=== PATIENT | male | born 2000 | race Hispanic/Latino ===

== ENCOUNTER 2022-03-10 08:22 | Observation (INO) | payer BC ==
[2022-03-09 09:33] LABS: BASOPHILS % 0.3 % (0.0-1.0); EOSINOPHILS # (AUTO) 0.1 (0.0-0.4); EOSINOPHILS % 1.7 % (0.0-6.0); HEMATOCRIT 47.5 % (38.2-49.6); HEMOGLOBIN 16.1 g/dL (14.0-18.0); LYMPHOCYTES # (AUTO) 2.7 (1.0-3.2); MEAN CORPUSCULAR HEMOGLOBIN 29.8 pg (28-32); MEAN CORPUSCULAR HGB CONC 33.9 g/dL (31-35); MONOCYTES # (AUTO) 0.4 (0.2-0.8); MONOCYTES % 6.6 % (4.4-11.3); NEUTROPHILS # (AUTO) 2.7 (2.1-6.9); NEUTROPHILS % 45.1 % (38.7-80.0); PLATELET COUNT 292 x10e3/uL (140-360); RED CELL DISTRIBUTION WIDTH 12.1 % (11.7-14.4)
[2022-03-09 09:46] LABS: INR 1.16; PARTIAL THROMBOPLASTIN TIME 30.1 seconds (23.8-35.5); PROTHROMBIN TIME 15.8 seconds (11.9-14.5)
[2022-03-09 09:51] LABS: ANION GAP 9.9 mmol/L (8-16); CALCIUM 9.2 mg/dL (8.4-10.2); CREATININE, SERUM 1.03 mg/dL (0.72-1.25); POTASSIUM 3.9 mmol/L (3.5-5.1)
[~2022-03-10] VITALS: Ht 180.3 cm; Wt 103.9 kg
[~2022-03-10 08:22] MED LIST: GABAPENTIN100 MG PO; METHOCARBAMOL750 MG PO; MOBIC7.5 MG PO
[2022-03-10] MEDS ORDERED: THROMBIN FOR SOLN 5,000 UNIT VIAL ONE (08:38)
[2022-03-10] MEDS ORDERED: LIDOCAINE 1% W/EPINEPHRINE 20 ML VIAL ONE (08:38)
[2022-03-10] MEDS ORDERED: Vancomycin IV 1 GM VIAL ONE (08:38)
[2022-03-10 09:23] LABS: INR 1.09; PROTHROMBIN TIME 15.1 seconds (11.9-14.5)
[2022-03-10 09:24] LABS: PARTIAL THROMBOPLASTIN TIME 30.3 seconds (23.8-35.5)
[2022-03-10] MEDS ORDERED: HYDROCODON-ACE1 EA12 PO (11:38)
[2022-03-10] MEDS ORDERED: HYDROMORPHONE 2MG/ML 2 MG/ML ML IV PRN (11:45)
[2022-03-10] MEDS ORDERED: CARISOPRODOL 350 MG TAB PO PRN (11:45)
[2022-03-10] MEDS ORDERED: ZOLPIDEM TARTRATE 5 MG TAB PO PRN (11:45)
[2022-03-10] MEDS ORDERED: ONDANSETRON HCL INJ 2MG/ML 2ML 2 MG/ML VIAL IV PRN (11:45)
[2022-03-10] MEDS ORDERED: Morphine 4mg Syringe 4 MG/ML INJ IM PRN (11:45)
[2022-03-10] MEDS ORDERED: OXYCODONE/ACETAMINOPHEN 5-325 1 EACH TABLET PO PRN (11:45)
[2022-03-10] MEDS ORDERED: PROMETHAZINE HCL (IM) 25 MG/ML VIAL IM PRN (11:45)
[2022-03-10] MEDS ORDERED: ACETAMINOPHEN 325 MG TAB PO PRN (11:45)
[2022-03-10] MEDS ORDERED: MAGNESIUM/ALUMINUM/SIMETHICONE 30 ML UDC PO PRN (11:45)
[2022-03-10] MEDS ORDERED: FENTANYL CITRATE/PF 100MCG/2 ML INJ ONE ×2 (12:08→13:23)
[2022-03-10] MEDS ORDERED: ONDANSETRON HCL INJ 2MG/ML 2ML 2 MG/ML VIAL ONE (12:24)
[2022-03-10] MEDS ORDERED: POVIDONE IODINE 0.05% 0.05 % ML PO ONE (12:24)
[2022-03-10] MEDS ORDERED: PROPOFOL IV EMULSION 10 MG/ML 20 ML VIAL ONE (12:24)
[2022-03-10] MEDS ORDERED: SEVOFLURANE INHAL SOLN 250 ML PEN BTL ONE (12:24)
[2022-03-10] MEDS ORDERED: ROCURONIUM BROMIDE 10 MG/ML 5ML VIAL IV ONE (12:24)
[2022-03-10] MEDS ORDERED: DEXAMETHASONE SOD PHOS INJ 4 MG/ML SDV ONE (12:24)
[2022-03-10] MEDS ORDERED: LIDOCAINE HCL 2% LOCAL INJ 5 ML SDV VIAL INJ ONE (12:24)
[2022-03-10 13:00] VITALS: BP 114/66
[2022-03-10 13:17] VITALS: BP 114/66
[2022-03-10] MEDS ORDERED: MIDAZOLAM HCL 2 MG/2 ML VIAL ONE (13:23)
[2022-03-10] MEDS ORDERED: LACTATED RINGER'S 1,000 ML IV SCH (13:45)
[2022-03-10 15:48] VITALS: BP 110/61
[2022-03-10] MEDS: GABAPENTIN 100 MG CAP PO SCH (17:37)
[2022-03-10 20:00] VITALS: BP 109/57
[2022-03-10] MEDS ORDERED: METHOCARBAMOL 750 MG TAB PO SCH (21:00)
[2022-03-11] VITALS: BP 99/58
[2022-03-11 04:00] VITALS: BP 108/65
[2022-03-11 08:00] VITALS: BP 126/78
[2022-03-11] MEDS: GABAPENTIN 100 MG CAP PO SCH (08:51)
[2022-03-11] MEDS ORDERED: MELOXICAM 7.5 MG TAB PO SCH (09:00)
== END 2022-03-11 10:29 | disposition home or self-care (01) ==
LOC: OR 08:22 → PACU V 11:37 → MED/SURG2 13:07
PROVIDERS: ADMIT Neurological Surgery; ATTEND Neurological Surgery
DX: M51.16 Intervertebral disc disorders with radiculopathy, lumbar region (principal); Q76.49 Other congenital malformations of spine, not associated with scoliosis; E66.9 Obesity, unspecified; Z68.32 Body mass index [BMI] 32.0-32.9, adult; Z01.810 Encounter for preprocedural cardiovascular examination; Z01.812 Encounter for preprocedural laboratory examination; Z01.818 Encounter for other preprocedural examination; Z20.822 Contact with and (suspected) exposure to COVID-19
CPT/HCPCS: 36415 ×2; 63047; 71046; 72020; 80048; 85025; 85610 ×2; 85730 ×2; 86850; 86900; 88304; 88311; 93005; G0378 ×2; J0690 ×2; J1100; J2001; J2250; J2405; J2704; J3010; J3370; U0002; J7121

== ENCOUNTER 2022-03-30 16:53 | Outpatient (RCR) | payer BC ==
[~2022-03-30 16:53] MED LIST changes: +HYDROCODON-ACE1 EA12 PO
== END 2022-04-05 ==
LOC: PT 16:53
PROVIDERS: ATTEND Neurological Surgery
DX: M51.16 Intervertebral disc disorders with radiculopathy, lumbar region (principal)